=== PATIENT | male | born 1980 | race Caucasian/White ===

== ENCOUNTER 2019-10-30 17:47 | Emergency (ER) | payer OTHER ==
[~2019-10-30] VITALS: Ht 182.9 cm; Wt 90.7 kg
== END 2019-10-30 19:50 | disposition home or self-care (01) ==
LOC: ER 17:47
DX: S61.213A Laceration without foreign body of left middle finger without damage to nail, initial encounter (principal); F17.200 Nicotine dependence, unspecified, uncomplicated; W27.8XXA Contact with other nonpowered hand tool, initial encounter
CPT/HCPCS: 12001; 73140; 99283-25

== ENCOUNTER 2021-11-17 07:30 | Day surgery (SDC) | payer OTHER ==
[~2021-11-17] VITALS: Ht 182.9 cm; Wt 91.3 kg
--- NOTE | 2021-11-17 08:23 | NUR ---
Ambulatory in Day Surgery History, Chart, Medications and Allergies reviewed before start of procedure. Lungs clear T/O to Auscultation. Pre-Op teaching done. Pt verbalizes understanding. Patient States Post-Procedure ride home has been arranged carol ann Mayes.
--- NOTE | 2021-11-17 11:52 | NUR ---
DRG TO UMBILICAL AND LEFT GROIN C/D/I. Discharge instructions reviewed with patient. Patient verbalizes understanding. Copy given to patient to take home. ICE TO SITES FOR APPROX 10 MIN. VSS. PT TOLERATED WATER, PUDDING AND CRACKERS WELL. Discharged via wheelchair to private car for ride home.
--- NOTE | 2021-11-19 10:31 | NUR ---
11/19/21 1031 Eli Butler VERIFICATIONS: EDIT CHART.
== END 2021-11-17 11:54 | disposition home or self-care (01) ==
LOC: ORSCMMR 07:30
PROVIDERS: Surgery
PROC: 0YU60JZ Supplement Left Inguinal Region with Synthetic Substitute, Open Approach (ICD-10-PCS; principal; 2021-11-17 09:00)
PROC: 0WQF0ZZ Repair Abdominal Wall, Open Approach (ICD-10-PCS; principal; 2021-11-17 09:00)
DX: K42.0 Umbilical hernia with obstruction, without gangrene (principal); K40.90 Unilateral inguinal hernia, without obstruction or gangrene, not specified as recurrent
CPT/HCPCS: A9270; C1781; J0690; J1100; J1885; J2250; J2405; J2704; J2795; J3010; J7120